=== PATIENT | male | born 1995 ===

== ENCOUNTER 2025-10-05 08:04 | Outpatient (AMB) | payer BC, SELFPAY ==
--- NOTE | 2025-10-05 08:09 | MHC.OFFWIV ---
Intake Vital Signs 10/05/25 08:11 Height 6 ft 3 in Weight 307 lb BMI 38.4 BP 162/84 H Blood Pressure Location Lt brachial Position Sitting Pulse 76 Pulse Source Pulse Oximeter Pulse Oximetry (%) 97 Oxygen Delivery Method Room Air Intake Visit Reasons: [employer] Severe lower back pain Intake Note: Patient presents c/o right sided low back pain that radiates down right leg. Patient has slipped lower discs previously & has been through PT. Patient Tobacco Use Status: Never used Tobacco Allergies amoxicillin Allergy (Severe, Verified 10/05/25 08:14) sores in the mouth, throat closes Do you need a note to return to daycare/school/sports/work: Yes HPI HPI Comments History of Present Illness Details History - The patient is a 29 year old male presenting with acute onset of severe back pain which began yesterday morning, making it difficult to get out of bed. - He experiences pain with standing and other activities, associated with right leg numbness and a sensation he describes as a needle shoved into my hip. - He reports a history of similar back pain in the same location, which was previously treated with ibuprofen and physical therapy. - He found physical therapy offered only temporary relief. 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 - He had no trauma or fall. - The patient denies any burning sensations, loss of bladder or bowel control, chest pain, or shortness of breath. - He denies CP, SOB, dysuria, hematuria, or saddle anesthesia. - He has been using tylenol at home with minimal relief. - He lives in [place] and is here for work. Physical Exam General: cooperative, healthy appearing and comfortable, patient oriented x3 Head: Normal to inspection, normocephalic/atraumatic Effort & Inspection: Normal respiratory effort and able to speak in complete sentences. Cardiac: RRR, no M/R/G noted. Normal S1 and S2. Respiratory: Clear to auscultation bilaterally. No w/r/r noted. Back/spine: No CVA tenderness bilaterally. Cervical, thoracic and lumbar spine normal to inspection. Cervical ROM normal, no midline spinous tenderness noted. Thoracic ROM normal, lumbar ROM slightly limited. No midline vertebral spinous tenderness noted. No step offs noted. Tenderness to palpation on the right side of the lumbar region. No TTP of the thoracic or lumbar paraspinous or paravertebral muscles. DTR are 2+ on the lower extremities noted. Ambulates with a steady gait. Extremities: Straight leg raise test negative on right; Straight leg raise test negative on left; motor strength normal 5/5 bilaterally. Neuro: Sensation intact Patient was informed and verbally consented to the use of an ambient scribe for clinic note documentation during this visit. [facility] Social History Patient Tobacco Use Status: Never used Tobacco Review of Systems Const All systems reviewed & are unremarkable except as noted in HPI and below Physical Exam Vital Signs: Last Vital Signs Pulse 76 10/05/25 08:11 BP 162/84 H 10/05/25 08:11 Pulse Ox 97 10/05/25 08:11 Oxygen Delivery Method Room Air 10/05/25 08:11 BMI result Body Mass Index 38.4 Assessment & Plan Assessment & Plan (1) Back pain: Code(s): M54.9 - Dorsalgia, unspecified Qualifiers: Back pain laterality: right Back pain location: low back pain Chronicity: acute Sciatica presence: without sciatica Qualified Code(s): M54.50 - Low back pain, unspecified Plan Most likely strain vs disc herniation vs sciatica Plan - Prescribed a muscle relaxer, prednisone, and meloxicam as needed for pain. - All prescriptions have been sent to the patient's pharmacy at [facility]. - Advised the patient to monitor his symptoms after starting the medications. - Recommended seeking further evaluation, possibly including an MRI, upon his return home if symptoms persist. Medications: New prednisone 40 mg (2 x 20 mg) PO DAILY 10 tabs 0RF 5 days cyclobenzaprine 10 mg (2 x 5 mg) PO Q8H PRN 20 tabs 0RF Muscle Spasm meloxicam 7.5 mg PO DAILY 10 tabs 0RF Coding Level of Care Code Est Pt Level 4 (60524) Diagnoses Acute right-sided low back pain without sciatica M54.50 Back pain laterality: right Back pain location: low back pain Chronicity: acute Sciatica presence: without sciatica
[2025-10-05 08:11] VITALS: BP 162/84; PULSE 76; O2SAT 97; BMI 38.4
== END 2025-10-05 08:42 | disposition home or self-care (01) ==
PROVIDERS: Visit Provider Physician Assistant Medical
DX: M54.50 Low back pain, unspecified (principal)